=== PATIENT | female | born 1995 | race Native Hawaiian/Other Pacific Islander ===

== ENCOUNTER 2018-09-12 23:08 | Inpatient (IN) | payer SELFPAY ==
[~2018-09-12] VITALS: Ht 165.1 cm; Wt 119.7 kg
--- NOTE | 2018-09-12 23:15 | NUR ---
STEVEN DELCID presented to unit via from ED, accompanied by , with c/o CONTRACTIONS,FLUID LEAKAGE. STEVEN DELCID weighed, gowned, voided, and to bed. EFHM and TOCO applied, VS taken. STEVEN DELCID oriented to bed controls, call light, TV, heat, and A/C controls.
[2018-09-12 23:50] LABS: BILIRUBIN,URINE NEGATIVE (NEGATIVE); CLARITY,URINE VERY CLOUDY; COLOR,URINE AMBER; GLUCOSE, URINE (UA) NEGATIVE (NEGATIVE); KETONES,URINE NEGATIVE (NEGATIVE); LEUKOCYTE ESTERASE ,URINE 2+ (NEGATIVE); NITRITE,URINE POSITIVE (NEGATIVE); PH,URINE 6 (5-9); PROTEIN,URINE 2+ (NEGATIVE); UROBILINOGEN,URINE NORMAL (NORMAL)
[2018-09-13] VITALS (60 sets, daily range): BP systolic 112–150; BP diastolic 58–87
--- NOTE | 2018-09-13 00:06 | NUR ---
called with pt's exam and tracing. new orders received.
[2018-09-13 00:11] LABS: BACTERIA,URINE LARGE /HPF; SQUAMOUS EPITHELIAL CELL,UR 0-2 /HPF; WBC,URINE >100 /HPF
[2018-09-13] MEDS ORDERED: LACTATED RINGERS 1,000 ML IV SCH (00:15)
--- NOTE | 2018-09-13 00:15 | NUR ---
called to unit. u/a results given. new orders given.
[2018-09-13] MEDS ORDERED: AMPICILLIN 2,000 MG/20 ML (IV USE) ONE (00:25)
[2018-09-13] MEDS ORDERED: AMPICILLIN FOR IV USE 2,000 MG in NS (IVPB) 50 ML IV ONE (00:30)
[2018-09-13 00:36] LABS: BASOPHILS % (AUTO) 0 % (0-10); EOSINOPHILS # (AUTO) 0.1 10^3/uL (0.0-0.3); EOSINOPHILS % (AUTO) 1 % (0-10); HEMATOCRIT 37 % (35-52); HEMOGLOBIN 12.6 G/DL (11.5-16.0); LYMPHOCYTES % (AUTO) 18 % (12-44); MEAN CORPUSCULAR HEMOGLOBIN 28 PG (25-34); MEAN CORPUSCULAR HGB CONC 34 G/DL (32-36); MEAN CORPUSCULAR VOLUME 82 FL (80-99); MEAN PLATELET VOLUME 9.1 FL (7.4-10.4); MONOCYTES # (AUTO) 1.6 X 10^3 (0.0-1.0); MONOCYTES % (AUTO) 10 % (0-12); NEUTROPHILS % (AUTO) 72 % (42-75); PLATELET COUNT 412 10^3/uL (130-400); RED CELL DISTRIBUTION WIDTH 14.1 % (10.0-14.5); WHITE BLOOD COUNT 16.8 10^3/uL (4.3-11.0)
[2018-09-13] MEDS ORDERED: D5 LR IV SOLUTION 1,000 ML IV ONE (01:31)
[2018-09-13] MEDS ORDERED: fentaNYL INJECTION 100 MCG/2 ML AMP ONE ×3 (01:31→23:10)
[2018-09-13] MEDS ORDERED: fentaNYL INJECTION 100 MCG/2 ML AMP IVP ONE (01:45)
[2018-09-13] MEDS: AMPICILLIN FOR IV USE 1,000 MG in NS (IVPB) 50 ML IV SCH ×5 (04:56→22:47)
[2018-09-13] MEDS: fentaNYL INJECTION 100 MCG/2 ML AMP IVP PRN ×8 (05:34→22:56)
[2018-09-13] MEDS: D5 LR IV SOLUTION 1,000 ML IV SCH ×3 (07:00→18:01)
[2018-09-13] MEDS ORDERED: FLU QUADRIvalent (5+ YOA) 2018-2019 (AFLURIA) 0.5 ML IM ONE (07:15)
--- NOTE | 2018-09-13 08:20 | NUR ---
THIS RN CALLED DR GUILLEN WITH UPDATED PT REPORT. SVE, UC PATTERN, PT RATING PAIN 8/10 WITH UC. FENTANYL GIVEN Q1H. DR GUILLEN IS ON WAY TO HOSPITAL AND WILL VISIT WITH AND ASSESS PT. NO NEW ORDERS AT THIS TIME.
[2018-09-13] MEDS ORDERED: MINERAL OIL CONCENTRATE 99.9% 15 ML UDC TOP PRN (08:45)
--- NOTE | 2018-09-13 08:55 | NUR ---
DR GUILLEN AND THIS RN DISCUSS PLAN OF PT CARE. WILL ADMIT AND LET PT CONTINUE TO LABOR AT THIS TIME. NO ORDER FOR PITOCIN AT THIS TIME.
--- NOTE | 2018-09-13 08:59 | NUR ---
DR SALES CALLED FOR UPDATE PT REPORT. DR SALES IS MERCHANDISE FLOW TEAM LEADER THIS WEEKEND FOR OB. THIS RN GIVES DR SALES UPDATED PT REPORT WELL PLAN OF CARE BY DR GUILLEN. DR SALES AWARE
--- NOTE | 2018-09-13 11:21 | History & Physical-OB ---
OB - Chief Complaint & HPI Date/Time Date of Admission: Date of Admission: Sep 13, 2018 at 08:45 Date seen by a Provider: Sep 13, 2018 Time Seen by a Provider: 08:35 Chief Complaint/History OB-Reason for Admission/Chief: Onset of Labor Hx : 2 Hx Para: 1 Expected Date of Delivery: Sep 23, 2018 Gestational Age in Weeks: 38 Gestational Age in Days: 4 Other reason for admission: 23 yo at 38w4d by 30 week US inconsistent with unsure LMP, with limited care, presented to L&D with complaint of persistent lower abdominal pain and leaking fluid. Found to have significant bleeding with cervical exam and tachysystole and FHT borderline tachycardic with poor variability. After bolus of IVF, contractions spaced and status improved. No active bleeding , but nursing reported continued significant blood with cervical exams and patient continued to have fairly constant pain concerning for possible partial abruption. Making cervical change with no augmentation and status stable. Pt was seen in [place] for one visit around 17 weeks by LMP but 21 weeks by bedside US and exam per notes. She then moved to this area and had first visit in [facility] in July. She believes she repeated GDM testing (had testing at first visit negative), but results not available at this time. She also notes that she had an US last week possibly for concern of excess fluid, and per pt report was told it was "okay" and that baby was measuring 7lb5oz. Admission Nurse Assessment Rev: Yes History of Labs O+, antibody neg. RI. HIV/HepB/RPR NR. GC/chlamydia neg. Early 1 hour and A1c normal. 28 week glucola unknown, GBS unknown. Positive quad screen for open neural tube defect, pt reports she did not follow-up in [place] where initial labs were done, but was told her 30 week US was normal. Allergies and Home Medications Allergies Coded Allergies: shrimp (Verified Allergy, Unknown, 09/12/18) Home Medications Vit No.124/Iron/FA 1 Each Tablet, 1 EACH PO DAILY, (Reported) Patient Home Medication List Home Medication List Reviewed: Yes OB - History Hx of Present Care: Yes Ultrasounds: Other (first US in third trimester, pt reports normal) Obstetrical Complications: Other (limited care) Medical Complications: None Obstetrical History Hx : 2 Hx Para: 1 Hx # Term Pregnancies: 1 Hx # Pregnancies: 0 Number of Living Children: 1 Hx Termination: No Hx Multiple Gestation: No Hx Ectopic : No Hx Stillbirth: No Hx Complication: No Hx Induced Hypertens: No Hx Maternal Gestational Diabet: No Hx Hemorrhage: No Delivery History Hx Dystocia: No Hx Forceps Assisted Delivery: No Hx Vacuum Extraction Assisted: No Hx Placenta Abnormality: No Hx Distress: No Hx Large For Gestational Age I: No Hx Small for Gestational Age I: No Hx Section: No Hx Vaginal Delivery Post C-Sec: No Hx Blood Disorders: No Adverse Rxn to Tranfusion: No Patient Past Medical History PMHx: denies PSurgHx: Tonsillectomy Social History/Family History HIV/AIDS: No Recent Infectious Disease Expo: No Sexually Transmitted Disease: No Alcohol Use: Denies Use Recreational Drug Use: No Smoking Cessation: Never smoker Immunizations Rubella: immune RPR/VDRL: Negative GBS Status: Unknown HBsAG: Negative OB - Admission Exam Physical Exam Vitals: Vital Signs 09/13/18 09/13/18 07:30 08:30 Temp 97.7 Pulse 98 Resp 18 B/P (MAP) 120/71 (87) O2 Delivery Room Air HEENT: NCAT Lungs: Clear Abdomen: Other (mild uterine tenderness with palpation) Extremities: Normal Cervical Dilatation: 3cm Effacement: 75% Station: -2 Membranes: Intact Heart Rate: 150's Accelerations: No Accelerations Decelerations: No Decelerations Programming Coordinator Variability: Average (6-25) Contractions on Admission: < 5 Minutes Apart Labs Laboratory Tests Test 09/12/18 23:35 09/13/18 00:15 Range/Units Urine Color MARITA H Urine Clarity VERY CLOUDY H Urine pH 6 5-9 Urine Specific [place] 1.020 1.016-1.022 Urine Protein 2+ H NEGATIVE Urine Glucose (UA) NEGATIVE NEGATIVE Urine Ketones NEGATIVE NEGATIVE Urine Nitrite POSITIVE H NEGATIVE Urine Bilirubin NEGATIVE NEGATIVE Urine Urobilinogen NORMAL NORMAL MG/DL Urine Leukocyte Esterase 2+ H NEGATIVE Urine RBC (Auto) 1+ H NEGATIVE Urine RBC NONE /HPF Urine WBC >100 H /HPF Urine Squamous Epithelial Cells 0-2 /HPF Urine Crystals NONE /LPF Urine Bacteria LARGE H /HPF Urine Casts NONE /LPF Urine Mucus NEGATIVE /LPF Urine Culture Indicated YES White Blood Count 16.8 H 4.3-11.0 10^3/uL Red Blood Count 4.54 4.35-5.85 10^6/uL Hemoglobin 12.6 11.5-16.0 G/DL Hematocrit 37 35-52 % Mean Corpuscular Volume 82 80-99 FL Mean Corpuscular Hemoglobin 28 25-34 PG Mean Corpuscular Hemoglobin Concent 34 32-36 G/DL Red Cell Distribution Width 14.1 10.0-14.5 % Platelet Count 412 H 130-400 10^3/uL Mean Platelet Volume 9.1 7.4-10.4 FL Neutrophils (%) (Auto) 72 42-75 % Lymphocytes (%) (Auto) 18 12-44 % Monocytes (%) (Auto) 10 0-12 % Eosinophils (%) (Auto) 1 0-10 % Basophils (%) (Auto) 0 0-10 % Neutrophils # (Auto) 12.0 H 1.8-7.8 X 10^3 Lymphocytes # (Auto) 3.0 1.0-4.0 X 10^3 Monocytes # (Auto) 1.6 H 0.0-1.0 X 10^3 Eosinophils # (Auto) 0.1 0.0-0.3 10^3/uL Basophils # (Auto) 0.0 0.0-0.1 10^3/uL OB - Assessment/Plan/Diagnosis Assessment Assessment: active labor, vaginal bleeding, other (Urinary tract infection) Admission Dx Term IUP at 38 weeks and 4 days by 30 week Early labor Vaginal bleeding Category II heart rate tracing Urinary tract infection GBS unknown Admission Status: Inpatient Order (span 2 midnights) Reason for Inpatient Admission: Labor and delivery and course Plan Plan: Expectant Management (Due to concern for possible partial abruption, even though cervical change at this point indicates early labor, will admit and plan for augmentation if needed as status is concerning while not requiring emergent intervention. Ampicillin for UTI will also cover for GBS unknown.) STEVEN GUILLEN MD Sep 13, 2018 11:21
[2018-09-13] MEDS ORDERED: PREN-142 PO (11:27)
--- NOTE | 2018-09-13 12:05 | Labor Progress Note ---
Labor Progress Note Labor Progress Note Date Seen by Provider: Sep 13, 2018 Time Seen by Provider: 11:55 Subjective: Pt doing okay. Objective: Cervical exam: 50/-3 Consistency: soft Position: anterior Presentation: vertex heart tones: 150 beats per minute, moderate variability, reactive Tocometer: 3-4 ctx/10 minutes Assessment/Plan: Sonali Encinas is a 23 /Para 2 / 1,Gestational Age (wks)38 here in labor. FSE/TOCO AROM done with clear fluid, FSE placed Anesthesia: none Anticipate vaginal delivery. Vitals - Labs Vital Signs - I&O Vital Signs Date Time Temp Pulse Resp B/P (MAP) Pulse Ox O2 Delivery O2 Flow Rate FiO2 09/13/18 08:30 98 18 120/71 (87) Room Air 09/13/18 08:00 Room Air 09/13/18 07:30 97.7 108 18 130/84 (99) Room Air 09/13/18 05:00 98.3 100 18 132/82 (99) Room Air 09/13/18 00:40 98.0 98 18 132/63 (86) Room Air 09/13/18 00:11 97.3 127 18 137/76 (96) Room Air I & O 09/13/18 07:00 Intake Total 1200 ml Balance 1200 ml Labs Laboratory Tests 09/12/18 23:35: Urine Color AMBERH, Urine Clarity VERY CLOUDYH, Urine pH 6, Urine Specific [place] 1.020, Urine Protein 2+H, Urine Glucose (UA) NEGATIVE, Urine Ketones NEGATIVE, Urine Nitrite POSITIVEH, Urine Bilirubin NEGATIVE, Urine Urobilinogen NORMAL, Urine Leukocyte Esterase 2+H, Urine RBC (Auto) 1+H, Urine RBC NONE, Urine WBC >100H, Urine Squamous Epithelial Cells 0-2, Urine Crystals NONE, Urine Bacteria LARGEH, Urine Casts NONE, Urine Mucus NEGATIVE, Urine Culture Indicated YES 09/13/18 00:15: White Blood Count 16.8H, Red Blood Count 4.54, Hemoglobin 12.6, Hematocrit 37, Mean Corpuscular Volume 82, Mean Corpuscular Hemoglobin 28, Mean Corpuscular Hemoglobin Concent 34, Red Cell Distribution Width 14.1, Platelet Count 412H, Mean Platelet Volume 9.1, Neutrophils (%) (Auto) 72, Lymphocytes (%) (Auto) 18, Monocytes (%) (Auto) 10, Eosinophils (%) (Auto) 1, Basophils (%) (Auto) 0, Neutrophils # (Auto) 12.0H, Lymphocytes # (Auto) 3.0, Monocytes # (Auto) 1.6H, Eosinophils # (Auto) 0.1, Basophils # (Auto) 0.0 STEVEN GUILLEN MD Sep 13, 2018 12:05
--- NOTE | 2018-09-13 14:05 | NUR ---
DR GUILLEN CALLED WITH UPDATED PT REPORT. SVE NO CHANGE 3, UC PATTERN, FHT DESCRIPTION. ORDER FOR PITOCIN
--- NOTE | 2018-09-13 14:13 | NUR ---
RN CALLS DR GUILLEN BACK TO REPORT VARIABLE TO 80S WITH UC. WILL HOLD ON PITOCIN ORDER AT THIS TIME.
--- NOTE | 2018-09-13 15:37 | NUR ---
THIS RN CALLED DR GUILLEN WITH UPDATE PT REPORT. SVE NO CHANGE. UC PATTERN, FHT, NO DECEL FOR AT LEAST 1 HR. PITOCIN ORDER RECEIVED
[2018-09-13] MEDS ORDERED: OXYTOCIN/NORMAL SALINE 500 ML IV SCH (15:38)
--- NOTE | 2018-09-13 15:45 | NUR ---
PT REPORT GIVEN TO OMISÉS VEGA AT THIS TIME.
--- NOTE | 2018-09-13 17:30 | NUR ---
notified RN sawing and assembly supervisor for Ampicillin abx.
--- NOTE | 2018-09-13 17:39 | NUR ---
update given to . no new orders received @ time.
--- NOTE | 2018-09-13 18:30 | NUR ---
RN dry starch supervisor called for Ampicillin abx.
--- NOTE | 2018-09-13 19:00 | NUR ---
report given to Margoth RN
[2018-09-13] MEDS ORDERED: SUFENTA 0.6MCG/ML BUPIVA 0.125 100 ML ONE (22:26)
[2018-09-13] MEDS ORDERED: LIDOCAINE PF 2% 5 ML (XYLOCAINE) VIAL ONE (23:10)
[2018-09-13] MEDS ORDERED: BUPIVACAINE 0.5% 30 ML (SENSORCAINE) VIAL ONE (23:10)
[2018-09-13] MEDS ORDERED: LACTATED RINGERS 1,000 ML IV ONE ×2 (23:13)
[2018-09-13] MEDS ORDERED: NALOXONE 0.4 MG/ML 1 ML (NARCAN) VIAL IV PRN (23:15)
[2018-09-13] MEDS ORDERED: ONDANSETRON 4 MG/2 ML (SDV) Z0FRAN IV PRN (23:15)
[2018-09-13] MEDS ORDERED: EPIDURAL (SUFENTA 0.6MCG/ML BUPIVA 0.125%) 100 ML BAG EPI PRN (23:15)
[2018-09-13] MEDS ORDERED: BUPIVACAINE 0.25% 30 ML (SENSORCAINE) VIAL ONE (23:37)
[2018-09-14] VITALS (35 sets, daily range): BP systolic 107–131; BP diastolic 55–85
[2018-09-14] MEDS: AMPICILLIN FOR IV USE 1,000 MG in NS (IVPB) 50 ML IV SCH (02:57)
[2018-09-14] MEDS: D5 LR IV SOLUTION 1,000 ML IV SCH (03:00)
--- NOTE | 2018-09-14 06:20 | OB Labor & Delivery Record ---
Vag Delivery Note Vag Delivery Note Date of Delivery: 09/14/18 Preoperative Diagnosis: Sonali Encinas is a 23 /Para 2 / 2 ,Gestational Age (wks)38with 5 days Postoperative Diagnosis: Same Surgeon: STEVEN GUILLEN Anesthesia: Epidural Delivery Type: Spontaneous vaginal Findings: Viable male infant, apgars 7/8, weight 6#12 Lacerations: first degree perineal Intact placenta with 3 vessel cord. No nuchal cord, body cord or shoulder dystocia Estimated Blood Loss: 150 ml Complications: None Condition: Stable Description of Procedure: The patient is a 23 year old female who presented with bleeding. She was stabilized and found to make cervical change. She was admitted and informed consent was obtained. Her labor course was remarkable for protracted course. She progressed to complete dilatation and began to push. She was then set up for delivery. The infant's head was delivered atraumatically in the BRANDON position. The shoulders and remainder of the infant's body were then delivered without difficulty. Upon delivery, the infant was vigorous and placed on maternal abdomen. The cord was doubly clamped and cut and the infant was handed off to the pediatric staff. An intact placenta with 3- vessel cord delivered via Annetta and there was found to be minimal bleeding.~ Vigorous fundal massage was performed and the fundus was found to be firm. IV oxytocin was given. Examination of the vagina and perineum revealed a first degree perineal laceration repaired in the usual fashion with 3-0 rapide suture. Following the repair, sponge, instrument and needle counts were correct. Mom and baby were both in stable condition in the labor suite. Vitals - Labs Vital Signs - I&O Vital Signs Date Time Temp Pulse Resp B/P (MAP) Pulse Ox O2 Delivery O2 Flow Rate FiO2 09/14/18 04:45 99 18 116/77 (90) 100 Room Air 09/14/18 04:30 97.8 92 18 119/80 (93) 98 Room Air 09/14/18 04:15 96 18 117/85 (96) 100 Room Air 09/14/18 04:00 93 18 125/74 (91) 100 Room Air 09/14/18 03:45 94 18 109/64 (79) 100 Room Air 09/14/18 03:30 82 18 121/75 (90) 100 Room Air 09/14/18 03:15 81 18 114/63 (80) 100 Room Air 09/14/18 03:00 80 18 114/68 (83) 100 Room Air 09/14/18 02:45 79 18 116/60 (78) 100 Room Air 09/14/18 02:30 86 18 98 Room Air 09/14/18 02:15 85 18 125/72 (89) 98 Room Air 09/14/18 02:00 88 18 121/70 (87) 98 Room Air 09/14/18 01:45 88 18 121/73 (89) 98 Room Air 09/14/18 01:30 100 18 109/60 (76) 98 Room Air 09/14/18 01:15 103 18 107/61 (76) 98 Room Air 09/14/18 01:00 96 18 110/62 (78) 98 Room Air 09/14/18 00:45 97.2 98 18 108/66 (80) 98 Room Air 09/14/18 00:40 100 18 115/59 (77) 98 Room Air 09/14/18 00:35 118 18 115/62 (79) 98 Room Air 09/14/18 00:30 95 18 114/55 (74) 99 Room Air 09/14/18 00:25 74 18 122/60 (80) 99 Room Air 09/14/18 00:20 85 18 123/57 (79) 99 Room Air 09/14/18 00:05 98 18 114/58 (76) 99 Room Air 09/14/18 00:00 92 18 126/65 (85) 99 Room Air 09/13/18 23:55 84 18 118/61 (80) 99 Room Air 09/13/18 23:50 91 18 130/58 (82) 99 Room Air 09/13/18 23:45 93 18 135/64 (87) 100 Room Air 09/13/18 23:40 84 18 131/67 (88) 98 Room Air 09/13/18 23:35 84 18 128/61 (83) 98 Room Air 09/13/18 23:30 85 18 135/67 (89) 98 Room Air 09/13/18 23:25 94 18 123/75 (91) 100 Room Air 09/13/18 23:20 84 18 112/63 (79) Room Air 09/13/18 23:10 92 18 127/58 (81) Room Air 09/13/18 22:55 86 18 131/65 (87) Room Air 09/13/18 22:40 83 18 135/65 (88) Room Air 09/13/18 22:25 90 18 128/64 (85) Room Air 09/13/18 22:10 85 18 132/74 (93) Room Air 09/13/18 21:55 97.7 82 18 123/73 (90) Room Air 09/13/18 21:40 81 18 120/59 (79) Room Air 09/13/18 21:25 83 18 150/70 (96) Room Air 09/13/18 21:10 87 18 139/74 (95) Room Air 09/13/18 20:55 85 18 132/59 (83) Room Air 09/13/18 20:40 82 18 135/72 (93) Room Air 09/13/18 20:25 83 18 133/71 (91) Room Air 09/13/18 20:10 89 18 130/80 (97) Room Air 09/13/18 19:55 90 18 127/67 (87) Room Air 09/13/18 19:40 90 18 133/62 (85) Room Air 09/13/18 19:25 81 18 131/64 (86) Room Air 09/13/18 19:10 97.1 85 18 133/74 (93) Room Air 09/13/18 18:55 93 18 148/78 (101) Room Air 09/13/18 18:40 97.8 94 18 147/80 (102) Room Air 09/13/18 18:25 94 18 128/63 (84) Room Air 09/13/18 18:10 94 18 128/63 (84) Room Air 09/13/18 17:55 93 18 128/63 (84) Room Air 09/13/18 17:40 97 18 135/66 (89) Room Air 09/13/18 17:25 87 18 130/68 (88) Room Air 09/13/18 17:10 92 18 126/61 (82) Room Air 09/13/18 16:55 82 18 127/59 (81) Room Air 09/13/18 16:40 86 18 133/77 (95) Room Air 09/13/18 16:25 86 18 133/77 (95) Room Air 09/13/18 16:10 86 18 133/77 (95) Room Air 09/13/18 15:50 97.8 86 18 128/67 (87) Room Air 09/13/18 15:45 Room Air 09/13/18 15:30 97.9 81 118/66 (83) Room Air 09/13/18 15:15 93 120/77 (91) Room Air 09/13/18 15:00 83 124/69 (87) Room Air 09/13/18 14:45 98.1 89 118/78 (91) Room Air 09/13/18 14:30 88 18 131/87 (102) Room Air 09/13/18 14:15 81 119/59 (79) Room Air 09/13/18 14:00 90 115/70 (85) Room Air 09/13/18 13:45 104 127/76 (93) Room Air 09/13/18 13:30 80 125/73 (90) Room Air 09/13/18 13:15 98.0 100 18 126/77 (93) Room Air 09/13/18 13:00 92 127/77 (94) Room Air 09/13/18 12:45 96 129/84 (99) Room Air 09/13/18 12:30 102 129/80 (96) Room Air 09/13/18 12:15 Room Air 09/13/18 12:00 Room Air 09/13/18 11:45 Room Air 09/13/18 11:30 109 18 118/75 (89) Room Air 09/13/18 11:15 Room Air 09/13/18 11:00 Room Air 09/13/18 10:45 Room Air 09/13/18 10:30 101 18 115/82 (93) Room Air 09/13/18 10:15 90 122/81 (95) Room Air 09/13/18 10:00 Room Air 09/13/18 09:30 100 127/74 (91) Room Air 09/13/18 09:00 Room Air 09/13/18 08:30 98 18 120/71 (87) Room Air 09/13/18 08:00 Room Air 09/13/18 07:30 97.7 108 18 130/84 (99) Room Air I & O 09/14/18 07:00 Intake Total 2000 ml Balance 2000 ml STEVEN GUILLEN MD Sep 14, 2018 06:20
--- NOTE | 2018-09-14 06:35 | NUR ---
epidural cath removed. tip intact.
[2018-09-14] MEDS ORDERED: IBUPROFEN 600 MG (MOTRIN) TAB PO ONE (06:54)
[2018-09-14] MEDS ORDERED: OXYTOCIN/NORMAL SALINE 500 ML IV SCH (07:05)
[2018-09-14] MEDS ORDERED: TETANUS,DIPTH,PERTUSS P/F (BOOSTRIX) 0.5 ML VIAL IM ONE (07:15)
[2018-09-14] MEDS ORDERED: IBUPROFEN 600 MG (MOTRIN) TAB PO SCH (07:15)
--- NOTE | 2018-09-14 07:55 | NUR ---
ASSESSMENT COMPLETED. VSS. LEFT LEG STILL NUMB AND UNABLE TO RAISE OFF OF BED. PERICARE WITH PAD CHANGE. PAD SATURATED BUT FF U/1 WITH LT/MOD RUBRA AT THIS TIME. PLANNING TO ORDER FOOD.
--- NOTE | 2018-09-14 08:15 | NUR ---
INFANT TO NURSERY R/T GRUNTING AND MOANING. SEE NURSERY NOTES.
--- NOTE | 2018-09-14 08:45 | NUR ---
EATING REGULAR DIET. FF U/1. VAG FLOW LT RUBRA. FAMILY AT BEDSIDE.
[2018-09-14] MEDS: BENZOCAINE/MENTHOL (DERMOPLAST) 56 ML CAN TP PRN ×2 (08:59→16:04)
[2018-09-14] MEDS: WITCH HAZEL(TUCKS) 40 EA JAR TOP PRN ×2 (08:59→16:04)
[2018-09-14] MEDS ORDERED: FLU QUADRIvalent (5+ YOA) 2018-2019 (AFLURIA) 0.5 ML IM ONE (09:00)
[2018-09-14] MEDS ORDERED: AMOXICILLIN 500 MG (POLYMOX) CAP PO SCH (09:00)
--- NOTE | 2018-09-14 09:07 | NUR ---
FLU VACCINE GIVEN IM IN LEFT DELTOID. SITE CLEAR. STATES SHE HAD THE TDAP DURING . STILL UNABLE TO MOVE LEFT LEG WELL. WILL WAIT A LITTLE WHILE BEFORE GETTING HER UP.
--- NOTE | 2018-09-14 09:20 | NUR ---
SPOUSE PLACED PT IN THE W/C WHILE THIS RN ABSENT FROM ROOM. PT TAKEN TO THE NURSERY TO SEE R/T INFANT HAVING RESP. PROBLEMS AND WILL STAY IN NURSERY UNTIL STABLE.
--- NOTE | 2018-09-14 10:30 | NUR ---
PT TO PP ROOM 310 VIA W/C. WANTING TO REST. LEG STILL PARTIALLY NUMB. INFORMED OF NEED FOR ASSISTANCE WHEN FIRST UP TO VOID. DENIES URGE TO VOID. BLADDER FILLING. FF U/1. VAG FLOW LT RUBRA. DENIES PAIN. FAMILY LEAVING FOR AWHILE. ORIENTED TO CALL LIGHT OPERATION AND BED CONTROLS. PT FAMILIAR WITH ROOM SERVICE PROCEDURE. VSS.
[2018-09-14] MEDS ORDERED: PRENATAL VITAMIN 1 EA TAB PO ONE (10:36)
[2018-09-14] MEDS: PRENATAL VITAMIN 1 EA TAB PO SCH ×2 (10:45→11:20)
--- NOTE | 2018-09-14 11:30 | NUR ---
SLEEPING QUIETLY. NO APPARENT DISTRESS.
--- NOTE | 2018-09-14 13:06 | Anesthesia-Regional Post-Op ---
Regional Patient Condition Mental Status: Alert, Oriented x3 Circulation: Same as Pre-Op Headache: Absent Sensation: Full Recovery Motor Block: Absent Post Op Complications Complications None Follow Up Care/Instructions Patient Instructions None needed. Anesthesia/Patient Condition Patient is doing well, no complaints, stable vital signs, no apparent adverse anesthesia problems. No complications reported per nursing. MENDEZ QUEZADA CRNA Sep 14, 2018 13:06
--- NOTE | 2018-09-14 13:30 | NUR ---
CONTINUES TO DO WELL. FF U/2. VAG FLOW LT RUBRA.
[2018-09-14] MEDS ORDERED: CATHETER FLUSH 10 ML SYR IV SCH (14:00)
--- NOTE | 2018-09-14 14:15 | NUR ---
DR. GUILLEN IN TO SEE PT. PLAN TO DISCHARGE PT R/T BEING TRANSFERRED TO [place]. CBC ORDERED.
[2018-09-14] MEDS ORDERED: IBUP-844 PO (14:33)
[2018-09-14] MEDS ORDERED: AMOX500C2 PO (14:33)
--- NOTE | 2018-09-14 14:35 | Discharge Instructions ---
Discharge Inst-Women's Serv Depart Medications New, Converted or Re-Newed RX: RX on Chart New Medications: Amoxicillin (Amoxicillin) 500 Mg Capsule 500 MG PO BID, #12 CAP 0 Refills Ibuprofen (Ibu) 600 Mg Tablet 600 MG PO Q6H PRN for PAIN-MODERATE, #60 TAB 0 Refills Continued Medications: Vit No.124/Iron/FA ( Vitamin Tablet) 1 Each Tablet 1 EACH PO DAILY, TAB Follow Up/Instructions Goal/Follow Up: Follow up in 6 weeks for visit with Dr. Gannon or Dr. Valdez. Activity Activity: Activity as Tolerated (avoid strenuous activity x 6 weeks) Nothing Inside Vagina: No Douching, No Gearhart, No Tampons Diet Discharge Diet: No Restrictions Symptoms to Report to : Swelling Increased, Bleeding Excessive, Fever Over 101 Degrees F, Pain/Pressure in Chest, Vaginal Bleeding Increase, Cramps in Feet or Legs, Lightheadedness, Vaginal Discharge Foul, Dizziness/Fainting, Shortness of Breath For Any Problems or Questions: Contact Your Physician Copies To 1: MIKE VALDEZ MD, BETHANY N MD Sep 14, 2018 14:35
--- NOTE | 2018-09-14 14:40 | Discharge Summary ---
Diagnosis/Chief Complaint Date of Admission Sep 13, 2018 at 08:45 Date of Discharge Sep 14, 2018 Admission Diagnosis Admission Diagnosis Term intrauterine at 38 weeks Vaginal bleeding in third trimester Limited care Onset of labor Discharge Diagnosis s/p Spontaneous vaginal delivery Chief Complaint/HPI Chief Complaint/HPI 23 yo G2 now P2 presented to L&D with bleeding and persistent abdominal pain concerning for possible abruption. With IVF, heart tones became reassuring and she had no active bleeding, contractions spread from every minute to every 3-4 minutes and she was found to make cervical change. Discharge Summary-Simple/Stand Procedures Spontaneous vaginal delivery Discharge Physical Examination Allergies: Coded Allergies: shrimp (Verified Allergy, Unknown, 09/12/18) Vitals & I&Os Vital Sign - Last 12Hours Date Time Temp Pulse Resp B/P (MAP) Pulse Ox O2 Delivery O2 Flow Rate FiO2 09/14/18 10:30 97.9 80 18 109/75 (86) 99 Room Air Intake and Output 09/14/18 00:00 Intake Total 1000 ml Balance 1000 ml General Appearance: Alert, No Acute Distress Psych/Mental Status: Mental Status NL, Mood NL Hospital Course Was the Problem List Reviewed?: Yes Pt admitted and had protracted active phase, augmented with AROM and pitocin, but when she reached complete dilation, she delivered within a very short time a viable male . Noted to have UTI and was discharged on amoxicillin. She had limited care and ANGELITA based on 30 weeks US. had respiratory distress and signs concerning for ARDS, was transferred and patient discharged early as she was stable and desired to go with to NICU. Labs Laboratory Tests Test 09/12/18 23:35 09/13/18 00:15 09/14/18 00:00 Range/Units Urine Color MARITA H Urine Clarity VERY CLOUDY H Urine pH 6 5-9 Urine Specific [place] 1.020 1.016-1.022 Urine Protein 2+ H NEGATIVE Urine Glucose (UA) NEGATIVE NEGATIVE Urine Ketones NEGATIVE NEGATIVE Urine Nitrite POSITIVE H NEGATIVE Urine Bilirubin NEGATIVE NEGATIVE Urine Urobilinogen NORMAL NORMAL MG/DL Urine Leukocyte Esterase 2+ H NEGATIVE Urine RBC (Auto) 1+ H NEGATIVE Urine RBC NONE /HPF Urine WBC >100 H /HPF Urine Squamous Epithelial Cells 0-2 /HPF Urine Crystals NONE /LPF Urine Bacteria LARGE H /HPF Urine Casts NONE /LPF Urine Mucus NEGATIVE /LPF Urine Culture Indicated YES White Blood Count 16.8 H 4.3-11.0 10^3/uL Red Blood Count 4.54 4.35-5.85 10^6/uL Hemoglobin 12.6 11.5-16.0 G/DL Hematocrit 37 35-52 % Mean Corpuscular Volume 82 80-99 FL Mean Corpuscular Hemoglobin 28 25-34 PG Mean Corpuscular Hemoglobin Concent 34 32-36 G/DL Red Cell Distribution Width 14.1 10.0-14.5 % Platelet Count 412 H 130-400 10^3/uL Mean Platelet Volume 9.1 7.4-10.4 FL Neutrophils (%) (Auto) 72 42-75 % Lymphocytes (%) (Auto) 18 12-44 % Monocytes (%) (Auto) 10 0-12 % Eosinophils (%) (Auto) 1 0-10 % Basophils (%) (Auto) 0 0-10 % Neutrophils # (Auto) 12.0 H 1.8-7.8 X 10^3 Lymphocytes # (Auto) 3.0 1.0-4.0 X 10^3 Monocytes # (Auto) 1.6 H 0.0-1.0 X 10^3 Eosinophils # (Auto) 0.1 0.0-0.3 10^3/uL Basophils # (Auto) 0.0 0.0-0.1 10^3/uL Discharge Instructions to patient/family Please see electronic discharge instructions given to patient. Discharge Medications Reviewed and agree with Discharge Medication list on patient's Discharge Instruction sheet Clinical Quality Measures DVT/VTE Risk/Contraindication: Risk Factor Score Per Nursin RFS Level Per Nursing on Admit: 2=Moderate Copy Copies To 1: MIKE VALDEZ MD, BETHANY N MD Sep 14, 2018 14:40
[2018-09-14 15:05] LABS: HEMOGLOBIN 12.6 G/DL (11.5-16.0); RED CELL DISTRIBUTION WIDTH 14.1 % (10.0-14.5); WHITE BLOOD COUNT 18.4 10^3/uL (4.3-11.0)
--- NOTE | 2018-09-14 15:25 | NUR ---
PT TO NURSERY TO SEE .
--- NOTE | 2018-09-14 15:30 | NUR ---
MALVIN HERE TO TRANSFER .
--- NOTE | 2018-09-14 16:20 | NUR ---
DISCHARGE INSTRUCTIONS REVIEWED WITH COPY TO PT. RXS GIVEN. STATES UNDERSTANDING OF ALL INSTRUCTIONS AND NEED TO F/U INSTRUCTED.
--- NOTE | 2018-09-14 16:25 | NUR ---
FORREST G[employer] SECURITY ARCHITECT IN TO TALK WITH MOM AND GET SIGNATURES.
--- NOTE | 2018-09-14 16:35 | NUR ---
PARENTS TO NURSERY TO SEE .
--- NOTE | 2018-09-14 16:45 | NUR ---
[facility] TEAM LEFT WITH INFANT.
--- NOTE | 2018-09-14 17:25 | NUR ---
DISMISSED AMB FROM [facility] IN STABLE CONDITION TO FAMILY CAR [facility] BY SPOUSE, DAUGHTER, MOTHER, AND PEACE CURIEL.
== END 2018-09-14 17:25 | disposition home or self-care (01) | DRG 806 ==
LOC: WSo 23:08 → LDRP 23:09 → WSo 09-13 01:38 → LDRP 09-13 01:39 → OBSVTOIN 09-13 08:45 → LDRP 09-14 11:49
PROVIDERS: ADMIT Family Medicine; ATTEND Family Medicine
PROC: 10E0XZZ Delivery of Products of Conception, External Approach (ICD-10-PCS; principal; 2018-09-14)
PROC: 0HQ9XZZ Repair Perineum Skin, External Approach (ICD-10-PCS; 2018-09-14)
DX: O46.93 Antepartum hemorrhage, unspecified, third trimester (principal); O23.43 Unspecified infection of urinary tract in pregnancy, third trimester; O76 Abnormality in fetal heart rate and rhythm complicating labor and delivery; O70.0 First degree perineal laceration during delivery; Z3A.38 38 weeks gestation of pregnancy; Z37.0 Single live birth
CPT/HCPCS: 36415; 81000; 85025; 85027; 86850; 86900; 86901; 87077; 87088; 87186; 90471; 90686; 99212